=== PATIENT | male | born 1970 | race Caucasian/White ===

== ENCOUNTER 2018-04-14 15:42 | Day surgery (SDC) | payer BC ==
[~2018-04-14] VITALS: Ht 175.3 cm; Wt 79.4 kg
[~2018-04-14 15:42] MED LIST: CIPR500T4 PO; HYDR-34 PO; ONDA8TAB13 PO; PHEN-640 PO; TAMS0.4C98 PO
--- OUTSIDE RECORDS SUMMARY | 2018-04-14 15:48 | XMS REPORT | Clinical Summary ---
Author Author [facility] Organization [facility] Address Unknown Phone Unavailable Care Team Providers Care Cash Shortage Investigator Name Role Phone PCP Unavailable Allergies Not on File Current Medications Not on file Active Problems Not on file Social History Tobacco Use Types Packs/Day Years Used Date Never Assessed Sex Assigned at Date Recorded Not on file Last Filed Vital Signs Not on file Plan of Treatment Not on file Results Not on filefrom Last 3 Months
[2018-04-14] MEDS ORDERED: KETOROLAC 30 MG/ML VIAL IVP STA (15:53)
[2018-04-14] MEDS ORDERED: LACTATED RINGERS 1,000 ML IV ONE (15:53)
--- NOTE | 2018-04-14 15:56 | ED Abdominal Pain ---
General Chief Complaint: Abdominal/GI Problems Stated Complaint: ABD PAIN Nursing Triage Note: ARRIVED VIA AMB TO ROOM 05. COMPLAINS OF ABD PAIN THAT STARTED AFTER EATING A CHEESBURGER FOR LUNCH TODAY. STATES THIS PAIN HAS HAPPENED X3 LAST WEEK BEING THE MOST RECENT. Sepsis Screen: No Definite Risk Source of Information: Patient Exam Limitations: No Limitations History of Present Illness Date Seen by Provider: Apr 14, 2018 Time Seen by Provider: 15:50 Initial Comments PT ARRIVES VIA POV C/O DIFFUSE UPPER ABDOMINAL PAIN SINCE LUNCHTIME, AFTER EATING A CHEESEBURGER STATES THIS IS THE 3RD OR 4TH TIME THIS HAS HAPPENED, AND EVERY TIME HAS BEEN RIGHT AFTER HE HAS EATEN. LAST TIME WAS A WEEK AGO NOTHING IMPROVES PAIN ,BUT HAS NOT TAKEN ANYTHING FOR PAIN NO NAUSEA/VOMITING/DIARRHEA. HAD NORMAL BM TODAY NO FEVER NO URINARY SYMPTOMS HAS NOT SOUGHT CARE UNTIL TODAY NO PCP Allergies and Home Medications Allergies Coded Allergies: No Known Drug Allergies (Unverified , 03/14/16) Patient Home Medication List Home Medication List Reviewed: Yes Review of Systems Review of Systems Constitutional: no symptoms reported Respiratory: No Symptoms Reported Cardiovascular: No Symptoms Reported Gastrointestinal: See HPI, Abdominal Pain; Denies Diarrhea, Denies Nausea, Denies Vomiting Genitourinary: No Symptoms Reported Musculoskeletal: no symptoms reported Skin: no symptoms reported Psychiatric/Neurological: No Symptoms Reported Endocrine: No Symptoms Reported Hematologic/Lymphatic: No Symptoms Reported Past Filxuse-Vmqrjq-Szxcpp Hx Patient Social History Alcohol Use: Occasionally Uses Recreational Drug Use: No Smoking Status: Current Everyday Smoker (1 PPD) Type Used: Cigarettes (1 PPD) Recent Foreign Travel: No Contact w/Someone Who Travel: No Recent Infectious Disease Expo: No Recent Hopitalizations: No Past Medical History Surgeries: Yes (HERNIA REPAIR) Abdominal Respiratory: No Cardiac: No Neurological: No Reproductive Disorders: No Genitourinary: No Gastrointestinal: Yes Abdominal Hernia Musculoskeletal: No Endocrine: No HEENT: No Cancer: No Psychosocial: No Integumentary: No Blood Disorders: No Family Medical History No Pertinent Family Hx Physical Exam Vital Signs Vital Signs - First Documented 04/14/18 15:48 Temp 96.2 Pulse 77 Resp 16 B/P (MAP) 164/106 (125) Pulse Ox 97 O2 Delivery Room Air Capillary Refill : Less Than 3 Seconds Height/Weight/BMI Height: 5'9.00" Weight: 175lbs. oz. 79.399631mg; BMI Method:Stated General Appearance: WD/WN, other (LOOOKS UNCOMFORTABLE, RUBBING UPPER ABDOMEN) Respiratory: normal breath sounds, no respiratory distress, no accessory muscle use Cardiovascular: regular rate, rhythm, no murmur Gastrointestinal: normal bowel sounds, soft, no organomegaly, no pulsatile mass ; No distended, No guarding, No rebound; tenderness (DIFFUSE UPPER ABDOMINAL TENDERNESS, ESPECIALLY IN RUQ); No mass Extremities: normal inspection Back: normal inspection, no CVA tenderness Neurologic/Psychiatric: registry rn II-XII nml as tested, no motor/sensory deficits, alert, normal mood/affect, oriented x 3 Skin: normal color, warm/dry; No rash Progress/Results/Core Measures Results/Orders Lab Results Laboratory Tests Test 04/14/18 16:05 04/14/18 17:10 Range/Units White Blood Count 6.7 4.3-11.0 10^3/uL Red Blood Count 4.87 4.35-5.85 10^6/uL Hemoglobin 15.0 13.3-17.7 G/DL Hematocrit 44 40-54 % Mean Corpuscular Volume 91 80-99 FL Mean Corpuscular Hemoglobin 31 25-34 PG Mean Corpuscular Hemoglobin Concent 34 32-36 G/DL Red Cell Distribution Width 13.0 10.0-14.5 % Platelet Count 224 130-400 10^3/uL Mean Platelet Volume 10.5 H 7.4-10.4 FL Neutrophils (%) (Auto) 69 42-75 % Lymphocytes (%) (Auto) 19 12-44 % Monocytes (%) (Auto) 10 0-12 % Eosinophils (%) (Auto) 2 0-10 % Basophils (%) (Auto) 0 0-10 % Neutrophils # (Auto) 4.6 1.8-7.8 X 10^3 Lymphocytes # (Auto) 1.3 1.0-4.0 X 10^3 Monocytes # (Auto) 0.7 0.0-1.0 X 10^3 Eosinophils # (Auto) 0.1 0.0-0.3 10^3/uL Basophils # (Auto) 0.0 0.0-0.1 10^3/uL Prothrombin Time 12.9 12.2-14.7 SEC INR Comment 1.0 0.8-1.4 Activated Partial Thromboplast Time 27 24-35 SEC Sodium Level 142 135-145 MMOL/L Potassium Level 3.9 3.6-5.0 MMOL/L Chloride Level 108 H 98-107 MMOL/L Carbon Dioxide Level 23 21-32 MMOL/L Anion Gap 11 5-14 MMOL/L Blood Urea Nitrogen 20 H 7-18 MG/DL Creatinine 1.12 0.60-1.30 MG/DL Estimat Glomerular Filtration Rate > 60 BUN/Creatinine Ratio 18 Glucose Level 99 70-105 MG/DL Calcium Level 9.0 8.5-10.1 MG/DL Corrected Calcium 8.8 8.5-10.1 MG/DL Total Bilirubin 0.5 0.1-1.0 MG/DL Aspartate Amino Transf (AST/SGOT) 18 5-34 U/L Alanine Aminotransferase (ALT/SGPT) 25 0-55 U/L Alkaline Phosphatase 112 40-136 U/L Total Protein 6.7 6.4-8.2 GM/DL Albumin 4.3 3.2-4.5 GM/DL Amylase Level 70 25-125 U/L Lipase 26 8-78 U/L Urine Color YELLOW Urine Clarity CLEAR Urine pH 6.5 5-9 Urine Specific Winnie 1.010 L 1.016-1.022 Urine Protein 1+ H NEGATIVE Urine Glucose (UA) NEGATIVE NEGATIVE Urine Ketones NEGATIVE NEGATIVE Urine Nitrite NEGATIVE NEGATIVE Urine Bilirubin NEGATIVE NEGATIVE Urine Urobilinogen NORMAL NORMAL MG/DL Urine Leukocyte Esterase NEGATIVE NEGATIVE Urine RBC (Auto) NEGATIVE NEGATIVE Urine RBC NONE /HPF Urine WBC NONE /HPF Urine Squamous Epithelial Cells 0-2 /HPF Urine Crystals NONE /LPF Urine Bacteria NEGATIVE /HPF Urine Casts NONE /LPF Urine Mucus NEGATIVE /LPF Urine Culture Indicated NO My Orders Orders - ANGELA BISWAS DO Saline Lock/Iv-Start (04/14/18 15:53) Amylase (04/14/18 15:53) Cbc With Automated Diff (04/14/18 15:53) Comprehensive Metabolic Panel (04/14/18 15:53) Lipase (04/14/18 15:53) Protime With Inr (04/14/18 15:53) Partial Thromboplastin Time (04/14/18 15:53) Ua Culture If Indicated (04/14/18 15:53) Ct Abd/Pelv W (Appendicitis) (04/14/18 15:53) Saline Lock/Iv-Start (04/14/18 15:53) Lactated Ringers (Lr 1000 Ml Iv Solution (04/14/18 15:53) Ondansetron Injection (Zofran Injectio (04/14/18 16:00) Hyoscyamine Sl Tablet (Levsin Sl Tablet) (04/14/18 16:00) Ketorolac Injection (Toradol Injection) (04/14/18 15:53) Pantoprazole Injection (Protonix Injecti (04/14/18 16:00) Acute Abd Series (04/14/18 15:53) Iohexol Injection (Omnipaque 350 Mg/Ml 1 (04/14/18 16:30) Ns (Ivpb) (Sodium Chloride 0.9%) (04/14/18 16:30) Fentanyl Injection (Sublimaze Injection (04/14/18 17:20) Medications Given in ED Current Medications Medications Dose Ordered Sig/Jaimee Route Start Time Stop Time Status Last Admin Dose Admin Hyoscyamine Sulfate 0.25 mg ONCE ONCE SL 04/14/18 16:00 04/14/18 16:01 DC 04/14/18 16:03 0.25 MG Iohexol 100 ml ONCE ONCE IV 04/14/18 16:30 04/14/18 16:31 DC 04/14/18 16:37 100 ML Lactated Ringer's 1,000 ml @ 0 mls/hr Q0M ONCE IV 04/14/18 15:53 04/14/18 15:56 DC 04/14/18 16:06 1,000 MLS/HR Ondansetron HCl 4 mg ONCE ONCE IVP 04/14/18 16:00 04/14/18 16:01 DC 04/14/18 16:04 4 MG Pantoprazole 40 mg ONCE ONCE IV 04/14/18 16:00 04/14/18 16:01 DC 04/14/18 16:06 40 MG Sodium Chloride 250 ml ONCE ONCE IV 04/14/18 16:30 04/14/18 16:31 DC 04/14/18 16:38 80 ML Vital Signs/I&O 04/14/18 15:48 Temp 96.2 Pulse 77 Resp 16 B/P (MAP) 164/106 (125) Pulse Ox 97 O2 Delivery Room Air Blood Pressure Mean: 125 Progress Progress Note : Progress Note PAIN MODERATELY IMPROVED WITH FENTANYL. NO RELIEF WITH TORADOL Diagnostic Imaging Comments ACUTE ABDOMEN XRAYS--LARGE CALCIFIED SPLENIC CYST CT ABDOMEN/PELVIS--IMPACTED 2.6 CM GALLSTONE, WITH PERICHOLECYSTIC FLUID AND GB WALL THICKENING--C/W ACUTE CHOLECYSTITIS PER RADIOLOGIST REPORTS @ 1740 Reviewed: Reviewed by Me Departure Communication (Admissions) 1745--DISCUSSED WITH DR. REYES, ACCEPTS PT FOR ADMIT. ORDERS FOR CIPRO + FLAGYL NOTED. Impression Primary Impression: Cholelithiasis and acute cholecystitis without obstruction Additional Impression: Splenic cyst Disposition: ADMITTED INPATIENT Condition: Improved Admissions Decision to Admit Reason: Admit from ER (General) Decision to Admit/Date: Apr 14, 2018 Time/Decision to Admit Time: 17:45 Departure-Patient Inst. Referrals: NO,LOCAL PHYSICIAN (PCP/Family) Primary Care Physician ANGELA BISWAS DO Apr 14, 2018 15:56
[2018-04-14] MEDS ORDERED: HYOSCYAMINE 0.125 MG (LEVSIN) TAB SL ONE (16:00)
[2018-04-14] MEDS ORDERED: ONDANSETRON 4 MG/2 ML (SDV) Z0FRAN IVP ONE (16:00)
[2018-04-14] MEDS ORDERED: PANTOPRAZOLE 40 MG (PROTONIX) VIAL IV ONE (16:00)
[2018-04-14 16:15] LABS: BASOPHILS % (AUTO) 0 % (0-10); EOSINOPHILS # (AUTO) 0.1 10^3/uL (0.0-0.3); EOSINOPHILS % (AUTO) 2 % (0-10); HEMATOCRIT 44 % (40-54); LYMPHOCYTES # (AUTO) 1.3 X 10^3 (1.0-4.0); LYMPHOCYTES % (AUTO) 19 % (12-44); MEAN CORPUSCULAR HEMOGLOBIN 31 PG (25-34); MEAN CORPUSCULAR HGB CONC 34 G/DL (32-36); MEAN CORPUSCULAR VOLUME 91 FL (80-99); MEAN PLATELET VOLUME 10.5 FL (7.4-10.4); MONOCYTES # (AUTO) 0.7 X 10^3 (0.0-1.0); MONOCYTES % (AUTO) 10 % (0-12); NEUTROPHILS # (AUTO) 4.6 X 10^3 (1.8-7.8); NEUTROPHILS % (AUTO) 69 % (42-75); PLATELET COUNT 224 10^3/uL (130-400); RED BLOOD COUNT 4.87 10^6/uL (4.35-5.85); WHITE BLOOD COUNT 6.7 10^3/uL (4.3-11.0)
[2018-04-14 16:29] LABS: PROTHROMBIN TIME PATIENT 12.9 SEC (12.2-14.7)
[2018-04-14] MEDS ORDERED: NS 250 ML (IVPB) BAG IV ONE (16:30)
[2018-04-14] MEDS ORDERED: IOHEXOL 350 MG/ML 100 ML (OMNIPAQUE 350) VIAL IV ONE (16:30)
[2018-04-14 16:34] LABS: ALANINE AMINOTRANSFERASE 25 U/L (0-55); ALBUMIN 4.3 GM/DL (3.2-4.5); ALKALINE PHOSPHATASE 112 U/L (40-136); AMYLASE 70 U/L (25-125); BILIRUBIN,TOTAL 0.5 MG/DL (0.1-1.0); BUN/CREATININE RATIO 18; CARBON DIOXIDE 23 MMOL/L (21-32); CHLORIDE 108 MMOL/L (98-107); CREATININE SERUM 1.12 MG/DL (0.60-1.30); GFR ESTIMATED > 60; GLUCOSE 99 MG/DL (70-105); LIPASE 26 U/L (8-78); POTASSIUM 3.9 MMOL/L (3.6-5.0); SODIUM 142 MMOL/L (135-145); TOTAL PROTEIN 6.7 GM/DL (6.4-8.2)
--- NOTE | 2018-04-14 17:04 | Diagnostic Imaging Report ---
INDICATION: Abdominal pain. EXAMINATION: PA chest, supine and upright abdominal images were obtained. FINDINGS: Lungs are clear. There is no intraperitoneal free air. There is a large calcified splenic cyst in the left upper quadrant of the abdomen. There is contrast in the kidneys from prior contrast administration. There is no hydronephrosis. Ureters appear normal. Contrast in the urinary bladder. Bowel gas pattern is normal. There are no pathologic masses or calcifications. IMPRESSION: Large calcified splenic cyst. Dictated by: Dictated on workstation # [id number]
[2018-04-14 17:18] LABS: BILIRUBIN,URINE NEGATIVE (NEGATIVE); CLARITY,URINE CLEAR; COLOR,URINE YELLOW; GLUCOSE, URINE (UA) NEGATIVE (NEGATIVE); KETONES,URINE NEGATIVE (NEGATIVE); LEUKOCYTE ESTERASE ,URINE NEGATIVE (NEGATIVE); NITRITE,URINE NEGATIVE (NEGATIVE); PH,URINE 6.5 (5-9); PROTEIN,URINE 1+ (NEGATIVE); UROBILINOGEN,URINE NORMAL (NORMAL)
[2018-04-14] MEDS ORDERED: fentaNYL INJECTION 100 MCG/2 ML AMP IVP STA ×2 (17:20→17:45)
[2018-04-14 17:25] LABS: BACTERIA,URINE NEGATIVE /HPF
[2018-04-14 17:26] LABS: SQUAMOUS EPITHELIAL CELL,UR 0-2 /HPF
--- NOTE | 2018-04-14 17:36 | Diagnostic Imaging Report ---
PROCEDURE: CT abdomen and pelvis with contrast, rule out appendicitis. TECHNIQUE: Multiple contiguous axial images were obtained through the abdomen and pelvis after the administration of intravenous contrast. INDICATION: Postprandial pain. FINDINGS: There is a stone within the gallbladder. The gallbladder wall is thickened and appears edematous and there is likely at least slight pericholecystic fluid or edema. The CT appearance is suspicious for acute cholecystitis, correlate clinically. If indicated, gallbladder ultrasound may provide additional diagnostic utility. Large stone itself may be impacted near the cystic neck and measures 2.6 cm. There is no dilatation of intra or extrahepatic bile ducts. The pancreas and its duct appeared normal. There is tiny right renal cortical cyst. The left kidney is negative. There is no hydronephrosis. There are few noninflamed diverticula of the sigmoid. There is no diverticulitis or appendicitis. There is fatty right inguinal hernia, noninflamed. The prostate and seminal vesicles are unremarkable. There is a large peripherally calcified splenic cyst measuring 12 cm. IMPRESSION: 1. Cholelithiasis with gallbladder wall thickening, likely pericholecystic edema. The pattern is suspicious for acute cholecystitis. If indicated, gallbladder ultrasound may be of benefit. There is no biliary dilatation. 2. Normal pancreas. Unobstructed urinary tracts. Large thickwalled peripherally calcified chronic-appearing splenic cyst. 3. Additional chronic findings, as described. Dictated by: Dictated on workstation # [id number]
[2018-04-14] MEDS ORDERED: metroNIDAZOLE 500 MG (FLAGYL) TAB PO STA (17:45)
--- OUTSIDE RECORDS SUMMARY | 2018-04-14 18:33 | XMS REPORT | Clinical Summary ---
Author Author [facility] Organization [facility] Address Unknown Phone Unavailable Care Team Providers Care Blanching Machine Operator Name Role Phone PCP Unavailable Allergies Not [...]
[2018-04-14 19:08] VITALS: BP 132/76
[2018-04-14] MEDS ORDERED: ONDANSETRON 4 MG/2 ML (SDV) Z0FRAN IV PRN (19:30)
[2018-04-14] MEDS ORDERED: CATHETER FLUSH 10 ML SYR IV PRN (19:30)
[2018-04-14] MEDS: CIPROFLOXACIN IV 400MG/200ML 200 ML IV SCH (19:54)
[2018-04-14] MEDS: D5 1/2 NS W/KCL 20 MEQ/L 1,000 ML IV SCH (19:54)
[2018-04-14] MEDS: fentaNYL INJECTION 100 MCG/2 ML AMP IV PRN ×2 (20:11→22:08)
--- NOTE | 2018-04-14 20:40 | Progress Note-Pre Operative ---
Pre-Operative Progress Note H&P Reviewed The H&P was reviewed, patient examined and no changes noted. Date Seen by Provider: Apr 14, 2018 Time Seen by Provider: 20:40 Date H&P Reviewed: Apr 14, 2018 Time H&P Reviewed: 20:40 Pre-Operative Diagnosis: acute on chronic calculous cholecystitis. SEA REYES MD Apr 14, 2018 20:40
--- NOTE | 2018-04-14 21:00 | HISTORY AND PHYSICAL ---
DATE OF SERVICE: HISTORY OF PRESENT ILLNESS: The patient is a 47-year-old man who presented to [facility] Emergency Department with pain in the right upper abdominal quadrant. He reports that the pain was sharp in nature and persisted for quite some time. He states that the pain started after eating a cheeseburger for lunch today and his symptoms continued. He had reported with some associated nausea; however, no vomiting. He reports no diarrhea and did have a normal bowel movement today. Upon further questioning, he reports that this is at least his fourth episode. However, the other episodes were not severe in nature, did not last as long as well. A CT scan was performed, which did show a large gallstone as well as a dilated gallbladder and gallbladder wall thickening consistent with an acute calculous cholecystitis. His liver function enzymes are normal. PAST MEDICAL HISTORY: None. PAST SURGICAL HISTORY: Hernia repair. ALLERGIES: No known drug allergies. MEDICATIONS: None. SOCIAL HISTORY: Positive smoke 15 pack years. Social alcohol. FAMILY HISTORY: Noncontributory. VITAL SIGNS: Temperature 96.2, blood pressure 164/106, pulse 77, respirations 16, pulse ox 97% on room air. REVIEW OF SYSTEMS: Well-nourished male currently in no acute distress. He is not experiencing any shortness of breath or difficulty breathing. No chest pain, palpitations, diaphoresis. Pain in the right upper abdominal quadrant, which persisted and was sharp in nature with radiation towards the back with associated nausea; however, no vomiting. He did have a regular bowel movement today. No red blood per rectum, no dark tarry stools. No fever, chills, no recent inadvertent weight loss. All other review of systems negative. PHYSICAL EXAMINATION: CHEST: Clear. Good breath sounds bilaterally. HEART: Regular, no murmurs. EXTREMITIES: No lower extremity edema, negative Homans sign. HEENT: No scleral icterus. NECK: No cervical lymphadenopathy. ABDOMEN: Soft, nondistended. There is pain in the right upper abdominal quadrant with positive Lam sign with no peritoneal signs. SKIN: Warm, dry. LABORATORY DATA: WBC 6.7, hemoglobin 15.0, hematocrit 44, platelets 224, BUN 20, creatinine 1.12. Liver function enzymes are normal. ASSESSMENT AND PLAN: A 47-year-old male with [id number] calculous cholecystitis. The natural history of gallbladder disease was explained to the patient including the risks and benefits of surgery. He is in full understanding of this and would like to proceed with a laparoscopic cholecystectomy on this admission. Job ID: [id number] DocumentID: [id number] Dictated Date: 04/14/2018 20:39:46 Inspector Elevators Date: 04/14/2018 20:59:09 Dictated By: SEA REYES MD
[2018-04-15] VITALS: BP 117/79
[2018-04-15] MEDS: metroNIDAZOLE 500MG/100ML IVPB 100 ML IV SCH ×3 (01:43→10:45)
[2018-04-15] MEDS: D5 1/2 NS W/KCL 20 MEQ/L 1,000 ML IV SCH ×2 (03:45→10:46)
[2018-04-15 04:00] VITALS: BP 100/58
[2018-04-15 04:38] LABS: BASOPHILS % (AUTO) 0 % (0-10); EOSINOPHILS # (AUTO) 0.2 10^3/uL (0.0-0.3); EOSINOPHILS % (AUTO) 4 % (0-10); HEMATOCRIT 40 % (40-54); HEMOGLOBIN 13.5 G/DL (13.3-17.7); LYMPHOCYTES # (AUTO) 1.8 X 10^3 (1.0-4.0); LYMPHOCYTES % (AUTO) 32 % (12-44); MEAN CORPUSCULAR HEMOGLOBIN 31 PG (25-34); MEAN CORPUSCULAR HGB CONC 33 G/DL (32-36); MEAN CORPUSCULAR VOLUME 91 FL (80-99); MEAN PLATELET VOLUME 10.5 FL (7.4-10.4); MONOCYTES # (AUTO) 0.7 X 10^3 (0.0-1.0); MONOCYTES % (AUTO) 12 % (0-12); NEUTROPHILS % (AUTO) 52 % (42-75); PLATELET COUNT 187 10^3/uL (130-400); RED BLOOD COUNT 4.42 10^6/uL (4.35-5.85); RED CELL DISTRIBUTION WIDTH 12.8 % (10.0-14.5); WHITE BLOOD COUNT 5.7 10^3/uL (4.3-11.0)
[2018-04-15 04:57] LABS: ALANINE AMINOTRANSFERASE 18 U/L (0-55); ALBUMIN 3.5 GM/DL (3.2-4.5); ALKALINE PHOSPHATASE 97 U/L (40-136); AMYLASE 56 U/L (25-125); BILIRUBIN,TOTAL 0.8 MG/DL (0.1-1.0); BUN/CREATININE RATIO 17; CALCIUM 8.1 MG/DL (8.5-10.1); CARBON DIOXIDE 20 MMOL/L (21-32); CHLORIDE 109 MMOL/L (98-107); GFR ESTIMATED > 60; GLUCOSE 110 MG/DL (70-105); LIPASE 16 U/L (8-78); POTASSIUM 3.8 MMOL/L (3.6-5.0); SODIUM 138 MMOL/L (135-145); TOTAL PROTEIN 5.5 GM/DL (6.4-8.2)
[2018-04-15] MEDS: fentaNYL INJECTION 100 MCG/2 ML AMP IV PRN (06:42)
[2018-04-15] MEDS ORDERED: FLU QUADRIvalent (5+ YOA) 2018-2019 (AFLURIA) 0.5 ML IM ONE (07:00)
[2018-04-15 08:00] VITALS: BP 93/51
[2018-04-15] MEDS: CIPROFLOXACIN IV 400MG/200ML 200 ML IV SCH (08:07)
[2018-04-15] MEDS ORDERED: PANTOPRAZOLE 40 MG (PROTONIX) VIAL IV SCH (09:00)
[2018-04-15] MEDS ORDERED: BUP/EPI 0.5% 1:200,000 (SENSORCAINE) 30 ML VIAL ONE (09:41)
[2018-04-15] MEDS ORDERED: IBUP-30 PO (09:47)
[2018-04-15] MEDS ORDERED: DEXAMETHASONE 10 MG/ML (DECADRON) 1 ML VIAL ONE (10:43)
[2018-04-15] MEDS ORDERED: ROCURONIUM 10 MG/ML 5 ML SYRINGE IV ONE (10:43)
[2018-04-15] MEDS ORDERED: LIDOCAINE PF 2% 5 ML (XYLOCAINE) VIAL ONE (10:43)
[2018-04-15] MEDS ORDERED: SEVOFLURANE (ULTANE) 15 ML INHAL SOLN ONE ×7 (10:43→13:01)
[2018-04-15] MEDS ORDERED: ONDANSETRON 4 MG/2 ML (SDV) Z0FRAN ONE (10:43)
[2018-04-15] MEDS ORDERED: proPOfol 200 MG/20 ML (DIPRIVAN) VIAL IV ONE (10:43)
[2018-04-15] MEDS ORDERED: MIDAZOLAM 2 MG/2 ML (VERSED) VIAL ONE (10:44)
[2018-04-15] MEDS ORDERED: fentaNYL INJECTION 100 MCG/2 ML AMP ONE (10:44)
[2018-04-15] MEDS ORDERED: LACTATED RINGERS 1,000 ML IV ONE (11:43)
[2018-04-15] MEDS ORDERED: ceFAZolin 1,000 MG/10 ML (ANCEF) VIAL ONE (11:49)
[2018-04-15] MEDS ORDERED: ceFAZolin 2 GM IV Premixed 50 ML IV ONE (12:00)
[2018-04-15] MEDS ORDERED: GLYCOPYRROLATE 0.2 MG/ML (ROBINUL) 2 ML VIAL ONE (12:35)
[2018-04-15] MEDS ORDERED: NEOSTIGMINE 1 MG/ML 5 ML SYRINGE ONE (12:35)
[2018-04-15] MEDS ORDERED: PHENYLEPHRINE 100 MCG/ML 10 ML (ANESTHESIA) SYR ONE (12:43)
--- NOTE | 2018-04-15 13:04 | Progress Note-Post Operative ---
Post-Operative Progess Note Surgeon (s)/Bread Stacker (s) Surgeon SEA REYES MD Bread Stacker: abe negro REFINERY OPERATOR HELPER CRUDE UNIT Pre-Operative Diagnosis acute on chronic calculous cholecystitis. Post-Operative Diagnosis same Procedure & Operative Findings Date of Procedure 04/15/18 Procedure Performed/Findings laparoscopic cholecystectomy. Anesthesia Type GET Estimated Blood Loss Estimated blood loss (mL): minimal Specimens/Packing Specimens Removed gallbladder SEA REYES MD Apr 15, 2018 1:04 pm
[2018-04-15] MEDS ORDERED: HYDR-34 PO (13:07)
--- NOTE | 2018-04-15 13:08 | Discharge Inst-Surgical ---
D/C Lap Instructions-ERIC New, Converted, or Re-Newed RX: RX on Chart Follow Up Appt in 2 weeks Activity as tolerated No driving for 24 hours No driving while on pain medications Incentive Spirometry use every 2 hours while awake Regular Diet Symptoms to Report: Fever over 101 degree F, Nausea/Vomiting Infection Signs and Symptoms to report: Increased redness, Foul odor of wound, Increased drainage Bathing instructions: May shower Operative Area Clean/Dry; Keep incision clean/dry If any problems/questions: Contact your physician or go to Emergency Room SEA REYES MD Apr 15, 2018 1:08 pm
[2018-04-15] MEDS ORDERED: ONDANSETRON 4 MG/2 ML (SDV) Z0FRAN IVP PRN (13:15)
[2018-04-15] MEDS ORDERED: MEPERIDINE (DEMEROL) INJ 50 MG/ML IVP ONE (13:15)
[2018-04-15] MEDS ORDERED: PROMETHAZINE INJ 25 MG/ML (PHENERGAN) AMP IVP ONE (13:15)
[2018-04-15] MEDS ORDERED: fentaNYL INJECTION 100 MCG/2 ML AMP IVP ONE (13:15)
--- NOTE | 2018-04-15 14:20 | OPERATIVE REPORT ---
DATE OF SERVICE: 04/15/2018 PREOPERATIVE DIAGNOSIS: Acute calculous cholecystitis. POSTOPERATIVE DIAGNOSIS: Acute calculous cholecystitis. PROCEDURE: Laparoscopic cholecystectomy. SURGEON: Sea Reyes MD. PARACHUTE MENDER: Anselmo Leonard APRN. ANESTHESIA: General endotracheal. ESTIMATED BLOOD LOSS: Minimal. FINDINGS: Inflamed thickened gallbladder wall as well as a solitary large gallstone. DISPOSITION: The patient tolerated the procedure well. INDICATIONS: The patient is a 47-year-old male, who presented to the emergency department with a right upper abdominal quadrant pain, which was sharp in nature and persisted for greater than 12 hours. He reported that he ate a cheeseburger and the symptoms began and persisted. He had reported some associated nausea; however, no vomiting. He also reports no diarrhea and did have a bowel movement earlier that day. Upon further questioning, he reported that this is at least his fourth episode; however, this one was much more severe and persisted. A CT scan was performed, which did show a large gallstone, dilated gallbladder as well as a thickened gallbladder wall consistent with acute calculous cholecystitis. His liver function enzymes were normal. DESCRIPTION OF PROCEDURE: The patient was brought to the operating room and laid supine on the table. After adequate IV pain and sedative medications and general endotracheal intubation, the abdomen was prepped and draped in a standard surgical fashion. A 0.5% Marcaine with epinephrine was then used to anesthetize the overlying skin in the left upper abdominal quadrant and a transverse skin incision was made using a 15 blade. A 0 silk suture was applied to the medial aspect of the incision for retraction and a Veress needle inserted with a low opening pressure of 0 mmHg and the abdomen was then insufflated to 15 mmHg pressure. The Veress needle was removed and a 5 mm Xcel trocar placed followed by a 5 mm 45 degree angle laparoscope visualizing the peritoneal cavity. A four-quadrant abdominal exploration was performed. There was a dilated gallbladder with acute and chronic inflammatory changes around the gallbladder. The omentum, small bowel, stomach and liver appeared normal. Under direct visualization, we then proceeded to place a supraumbilical 10 mm port after the skin and peritoneal lining were anesthetized using 0.5% Marcaine with epinephrine and a transverse incision made using a 15 blade. In a similar manner, a right upper abdominal quadrant 5 mm port was placed. The gallbladder was first decompressed with a laparoscopic needle and suctioned. The fundus of the gallbladder was then retracted anteriorly and superiorly. The omental adhesions were then taken down bluntly using a grasper. There was significant edema around the gallbladder as well. The hepatoduodenal ligament was then opened using electrocautery as well as blunt dissection on the hook instrument. The entire critical view of safety was identified including the triangle of Calot as well as the cystic duct and artery as the only two structures going into the gallbladder as well as the cystic plate behind the proximal gallbladder. A timeout was then taken. The cystic duct and artery were clipped proximally, distally and cut with EndoShears. The gallbladder was then dissected off the liver bed using electrocautery and hook instrument with visualization of good hemostasis as well as no leaking ducts of Luschka. The gallbladder was removed through the 10 mm port site using an EndoCatch bag. The abdomen was desufflated and the remaining ports were removed. The fascia to the 10 mm port site was then closed using a [id number] 0 Vicryl suture on a UR needle. All skin incisions were then closed using 4-0 Monocryl running subcuticular sutures. The wounds were then cleaned and covered with Dermabond. The patient tolerated the procedure well. We will start IV and oral pain medication as well as a clear liquid diet. Once he is tolerating clears and has good pain control with oral pain medications and is ambulating well, we will discharge him home. He will be instructed to do no heavy lifting or exertion for the next two weeks as well as follow up in the office. Job ID: [id number] DocumentID: [id number] Dictated Date: 04/15/2018 13:16:26 Basket Patcher Date: 04/15/2018 14:19:58 Dictated By: SEA REYES MD
[2018-04-15 14:30] VITALS: BP 121/67
[2018-04-15 17:10] VITALS: BP 121/67
--- NOTE | 2018-04-16 13:44 | Anesthesia-General Post-Op ---
General Patient Condition Mental Status/LOC: Same as Preop Cardiovascular: Satisfactory Nausea/Vomiting: Absent Respiratory: Satisfactory Pain: Controlled Complications: Absent Post Op Complications Complications None Follow Up Care/Instructions Patient Instructions None needed. Anesthesia/Patient Condition Patient Condition Patient was already discharged this morning but nursing reported no anesthetic complications. KUN NORRIS DO Apr 16, 2018 13:43
--- OUTSIDE RECORDS SUMMARY | 2018-04-16 17:10 | XMS REPORT | Clinical Summary ---
Author Author [facility] Organization [facility] Address Unknown Phone Unavailable Care Team Providers Care Award Clerk Name Role Phone PCP Unavailable Allergies Not [...]
== END 2018-04-15 17:06 | disposition home or self-care (01) ==
LOC: EDUNIT# 15:42 → ER 15:43 → SDC 17:45 → 4TH 17:45 → UNDOADMOB 17:45 → SDC 04-15 17:06 → UNDODISOB 04-15 17:06
PROVIDERS: ATTEND Surgery
DX: K80.12 Calculus of gallbladder with acute and chronic cholecystitis without obstruction (principal); K21.9 Gastro-esophageal reflux disease without esophagitis; F17.210 Nicotine dependence, cigarettes, uncomplicated
CPT/HCPCS: 36415; 74022; 74177; 80053; 81000; 82150; 83690; 85025; 85610; 85730; 87081; 88304; 96361; 96374; 96375